=== PATIENT | female | born 1955 | race Caucasian/White ===

== ENCOUNTER 2016-11-03 16:21 | Day surgery (SDCO) | payer OTHER ==
[2016-11-03 17:11] LABS: BASOPHIL 0.2 % (0-2); EOSINOPHIL 0.4 % (0-5); HCT 39.3 % (37.0-47.0); HGB 13.5 g/dl (12.5-16.0); LYMPHOCYTE 19.4 % (15-48); MCH 30.8 pg (25.0-31.0); MCHC 34.4 g/dL (32.0-36.0); MCV 89.5 fL (78.0-100.0); MONOCYTE 4.4 % (0-12); MPV 9.5 fL (6.0-9.5); NEUTROPHIL 75.6 % (41-80); PLT 259 K/uL (150-400); RBC 4.39 M/uL (4.20-5.40); RDW 13.7 % (11.5-14.0)
[2016-11-03 17:33] LABS: CKMB 1.27 ng/mL (0.97-4.94); TROPONIN T < 0.010 ng/mL
[2016-11-03 17:35] LABS: ALBUMIN 4.1 g/dL (3.5-5.0); BILIRUBIN - TOTAL 0.3 mg/dL (0.1-1.0); CREATININE 0.9 mg/dL (0.5-1.0); GLOBULIN (CALCULATION) 2.8 g/dL (2.2-4.2); POTASSIUM 3.4 mmol/L (3.5-5.1); TOTAL PROTEIN 6.9 g/dL (6.4-8.3)
[2016-11-03 18:25] LABS: BILIRUBIN NEGATIVE (NEGATIVE); BLOOD NEGATIVE Ery/uL (NEGATIVE); CLARITY CLEAR (CLEAR); COLOR YELLOW (YELLOW); GLUCOSE (U) NORMAL (NORMAL); KETONE (U) NEGATIVE (NEGATIVE); LEUKOCYTES NEGATIVE Leu/uL (NEGATIVE); NITRITE NEGATIVE (NEGATIVE); PROTEIN NEGATIVE (NEGATIVE); SPECIFIC GRAVITY <=1.005 (1.001-1.030); UROBILINOGEN 0.2 mg/dL (0.2-1.0)
[2016-11-03 23:23] LABS: CKMB 1.35 ng/mL (0.97-4.94); TROPONIN T < 0.010 ng/mL
[2016-11-04 04:10] LABS: HCT 36.9 % (37.0-47.0); HGB 12.3 g/dl (12.5-16.0); MCH 30.4 pg (25.0-31.0); MCHC 33.3 g/dL (32.0-36.0); MCV 91.1 fL (78.0-100.0); MPV 9.1 fL (6.0-9.5); RBC 4.05 M/uL (4.20-5.40); RDW 13.9 % (11.5-14.0); WBC 5.9 K/uL (4.0-10.5)
[2016-11-04 04:26] LABS: CREATININE 0.8 mg/dL (0.5-1.0); POTASSIUM 4.9 mmol/L (3.5-5.1)
[2016-11-04 10:39] LABS: SQUAMOUS EPITHELIAL CELLS RARE; URINARY WBC RARE
[2016-11-04] MEDS ORDERED: ZOCOR20 MG PO (14:10)
[2016-11-04] MEDS ORDERED: FLUOXETINE HCL20 MG PO (14:11)
[2016-11-04] MEDS ORDERED: ELAVIL25 MG PO (14:11)
[2016-11-04] MEDS ORDERED: XANAX0.5 MG PO (14:11)
[2016-11-04] MEDS ORDERED: BUSPIRONE HCL15 MG PO (14:11)
== END 2016-11-04 11:45 | disposition home or self-care (01) ==
LOC: FER 16:21 → FTCU 18:20
PROVIDERS: Emergency Medicine; ADMIT Internal Medicine
DX: R55 Syncope and collapse (principal); I10 Essential (primary) hypertension; E78.5 Hyperlipidemia, unspecified; E11.9 Type 2 diabetes mellitus without complications; E66.9 Obesity, unspecified; E87.6 Hypokalemia; F41.9 Anxiety disorder, unspecified; F32.9 Major depressive disorder, single episode, unspecified; F17.210 Nicotine dependence, cigarettes, uncomplicated; Z82.49 Family history of ischemic heart disease and other diseases of the circulatory system; Z79.899 Other long term (current) drug therapy
CPT/HCPCS: 36415; 70450; 71010; 80048; 80053; 81001; 81003; 82550; 82553; 82962; 84484; 85025; 85379; 87088; 93005; 93880; G0378